=== PATIENT | female | born 1980 | race Caucasian/White ===

== ENCOUNTER 2024-03-01 17:18 | Emergency (ER) | payer BC ==
[~2024-03-01] VITALS: Ht 170.2 cm; Wt 88.0 kg
[2024-03-01 17:21] VITALS: BP_SYST 135; PULSE 85; RESP 18; TEMP 98.3; O2SAT 97
[2024-03-01 18:40] LABS: BASOPHILS # (AUTO) 0.1 K/uL (0.0-0.2); BASOPHILS % (AUTO) 1.6 % (0.0-2.0); EOSINOPHILS % (AUTO) 0.1 % (0.0-4.0); HEMATOCRIT 43.5 % (36-48); LYMPHOCYTES # (AUTO) 0.8 K/uL (1.0-5.5); LYMPHOCYTES % (AUTO) 10.4 % (20.5-51.5); MEAN CORPUSCULAR HEMOGLOBIN 32 pg (27-31); MEAN CORPUSCULAR HGB CONC 35 % (32-36); MEAN CORPUSCULAR VOLUME 92 fL (79.0-98.0); MONOCYTES # (AUTO) 0.4 K/uL (0.0-1.0); MONOCYTES % (AUTO) 4.7 % (1.7-9.3); NEUTROPHILS # (AUTO) 6.4 K/uL (1.8-7.7); NEUTROPHILS % (AUTO) 83.2 % (40.0-70.0); PLATELET COUNT (AUTO) 257 K/uL (130-430); RED BLOOD CELL COUNT(AUTO) 4.72 MIL/uL (4.2-6.2); RED CELL DISTRIBUTION WIDTH 12.8 % (9.0-15.0); WHITE BLOOD COUNT (AUTO) 7.7 K/uL (4.8-10.8)
[2024-03-01 18:42] LABS: INR 1.1 (0.8-1.2); PROTHROMBIN TIME 10.9 SECS (9.5-12.5)
[2024-03-01 18:53] LABS: ERYTHROCYTE SEDIMENTATION RATE 7 MM/HR (0-20)
[2024-03-01 19:23] LABS: CALCIUM 8.8 mg/dL (8.4-11.0); CREATININE 0.71 mg/dL (0.55-1.30); POTASSIUM 4.1 mmol/L (3.5-5.1)
[2024-03-01] MEDS: NACL 0.9% 1,000 ML IV ONE (19:56)
[2024-03-01] MEDS: METOCLOPRAMIDE HCL 10 MG/2 ML VIAL IVP ONE (20:17)
[2024-03-01] MEDS: ENALAPRILAT DIHYDRATE 1.25 MG/ML VIAL IVP ONE (20:17)
[2024-03-01 21:05] LABS: BILIRUBIN,URINE NEGATIVE (NEGATIVE); BLOOD, URINE NEGATIVE (NEGATIVE); CLARITY/URINE SL CLOUDY (CLEAR); COLOR,URINE YELLOW (YELLOW); GLUCOSE,URINE NEGATIVE (NEGATIVE); KETONES,URINE TRACE (NEGATIVE); LEUKOCYTE ESTERASE ,URINE TRACE (NEGATIVE); NITRITE, URINE NEGATIVE (NEGATIVE); PH,URINE 6.5 (5.0-8.0); PROTEIN URINE NEGATIVE (NEGATIVE); UROBILINOGEN,URINE 0.2 (0.2-1.0)
[2024-03-01 21:40] LABS: BACTERIA,URINE MODERATE /HPF (None Seen); RBC,URINE 0-3 /HPF (0-3)
[2024-03-01] MEDS ORDERED: NAPR-1172 PO (22:20)
[2024-03-01] MEDS ORDERED: NITR-85 PO (22:20)
[2024-03-01 22:28] VITALS: BP_SYST 125; PULSE 73; RESP 14; TEMP 98.2; O2SAT 97
[2024-03-01] MEDS: CEFEPIME 1 GM in D5W 50 ML IV ONE (22:33)
[2024-03-01] MEDS ORDERED: CEFEPIME 1 GM/VIAL (MAXIPIME) ONE (22:35)
== END 2024-03-01 22:28 | disposition home or self-care (01) ==
LOC: SED 17:18
DX: G43.909 Migraine, unspecified, not intractable, without status migrainosus (principal); R03.0 Elevated blood-pressure reading, without diagnosis of hypertension; R00.0 Tachycardia, unspecified; Z88.1 Allergy status to other antibiotic agents; Z88.2 Allergy status to sulfonamides; Z91.040 Latex allergy status; Z79.899 Other long term (current) drug therapy; Z79.2 Long term (current) use of antibiotics
CPT/HCPCS: 99285; 96374; 70450; 96361; 96375; 80048; 81001; 85025; 85610; 85651; 85730; 87040; 87086; 36415; 93005; 81025; 82397; J2765; J7030; 81000; 81015; J0692